=== PATIENT | male | born 2000 | race Caucasian/White ===

== ENCOUNTER 2020-08-03 01:47 | Emergency (ER) | payer SELFPAY ==
[2020-08-03 01:47] VITALS: BP 126/76; PULSE 90; RESP 16; TEMP 37.2; O2SAT 100; BMI 19.4
--- NOTE | 2020-08-03 02:02 | ED.RN ---
RN CALLED FOR EKG, NO OLD EKGS IN MUSE
--- NOTE | 2020-08-03 02:05 | EKG12_ITS ---
Test Reason : CP Blood Pressure : / mmHG Vent. Rate : 092 BPM Atrial Rate : 092 BPM P-R Int : 158 ms QRS Dur : 070 ms QT Int : 342 ms P-R-T Axes : 069 060 059 degrees QTc Int : 422 ms Normal sinus rhythm Right atrial enlargement Borderline ECG Confirmed by SIMON BASURTO, KEMAL ([id number]), film or videotape editor DUTCH BARNES ([id number]) on 08/04/2020 10:05:00 AM Referred By: BB Confirmed By:KEMAL MONTES MD
--- NOTE | 2020-08-03 02:11 | ED.VIS.CHEST ---
HPI History of Present Illness Chief Complaint: Chest Pain Informant: patient Onset/Context/Timing Onset: Weeks (3-4) Activity at onset: gradual Timing: Intermittent and - (as long as I think about it) Quality: Positive for Pressure Location: Right Chest (Without radiation) Current Severity: Mild Maximum Severity: Moderate Worsened By: Nothing; Not Worsened By Exertion, Movement of Arm, Movement of Torso, Eating, Breathing and Coughing Relieved By: Nothing Associated Symptoms: Positive for Nausea (w/ dry heaves tonight for first time) Narrative Patient states since the discomfort has been going on for 3 to 4 weeks and he was having some dry heaving tonight, he decided to get checked. He has not had this evaluated yet. Other than the dry heaves tonight, he has had no other associated symptoms such as dyspnea, leg pain or swelling, pleuritic discomfort, palpitations, lightheadedness, sweating that is unexplained. He states he vapes but does not smoke cigarettes or do any other drugs, he is not an IV drug user, he stopped vaping but the symptoms persisted intermittently. PE Risk Factors: Positive for Recent Travel/Surgery (traveling state to pending sale to [facility], [facility] for past 1-2 years; lives in [place]; recently to [facility].) PFSH PFSH Home Medications dicyclomine 20 mg PO Q6H PRN #20 capsule 08/03/20 [Rx Last Taken Unknown] omeprazole 40 mg PO DAILY #14 cap 08/03/20 [Rx Last Taken Unknown] Allergy/AdvReac Type Severity Reaction Status Date / Time No Known Allergies Allergy Verified 08/03/20 01:51 Social History Smoking Status: Current every day smoker ROS ROS ED Constitutional Constitutional ED: Denies chills or fever(s) Eyes Eyes: Denies change in vision or diplopia ENT ENT ED: Denies rhinorrhea or sore throat Cardiovascular Cardiovascular: Reports as per HPI and chest pain; Denies palpitations Respiratory/Chest Respiratory/Chest: Denies cough or dyspnea Gastrointestinal Gastrointestinal: Denies abdominal pain, diarrhea, nausea or vomiting Genitourinary Genitourinary ED: Denies dysuria or hematuria Musculoskeletal Musculoskeletal: Denies back pain or neck pain Integumentary Denies abscess or rash Neurologic Neurologic: Denies headache(s), paresthesias or weakness Psychiatric Psychiatric: Denies anxiety or suicidal thoughts EXAM Physical Exam Const Vital Signs: 08/03/20 01:47 08/03/20 01:52 08/03/20 02:09 Temperature 99 F Temperature Source Oral Pulse Rate 90 Respiratory Rate 16 Respiratory Effort Normal Non-Labored Blood Pressure 126/76 H Blood Pressure Mean 92 Pulse Ox 100 Oxygen Delivery Method Room Air Room Air 08/03/20 03:02 Temperature Temperature Source Pulse Rate 78 Respiratory Rate 20 H Respiratory Effort Blood Pressure 127/82 H Blood Pressure Mean 97 Pulse Ox 99 Oxygen Delivery Method Room Air Positive well nourished and well developed General Appearance ED: well developed and NAD HEENT Reports moist mucous membranes normocephalic and atraumatic Eyes PERRL and EOMs intact bilaterally Neck full ROM and supple Chest Wall inspection of chest normal and palpation of chest normal Chest: Negative for tenderness Resp normal respiratory effort and clear to auscultation bilaterally Cardio regular rate, regular rhythm and no murmurs Rate: Negative for tachycardic GI non-tender and non-distended Auscultation: normoactive bowel sounds Palpation: soft Back/Spine no CVA tenderness General Back: other FROM Extremity normal to inspection Extremity Narrative: no palpable cords General Extremety ED: Negative for calf tenderness, edema, pulses abnormal or tenderness General Extremity: Negative for calf tenderness, edema or pulses abnormal Neuro oriented x3, CN's II-XII intact bilaterally and no sensory deficits noted Sensorium / Orientation: awake and alert Motor Exam: strength 5/5 throughout Psych mental status grossly normal, thought process normal, cooperative and affect normal Skin no rashes or lesions noted and no wounds MDM MDM MDM Narrative Medical decision making narrative: PERC score is 0. He does not need further work-up in order to rule out pulmonary embolus, and this history/exam is inconsistent with PE. He was reassured with regards to that as well as cardiac etiologies given his normal work-up, his chest x-ray and exam are normal. I gave him a GI cocktail in consideration of the possibility of GI etiology, he states he cannot tell if it is the resting or the medication but he feels much better. At this time I recommend that he follow-up with his doctor once he gets home, but I will place him on a 2-week course of a PPI as well as as needed dicyclomine to see if that helps and he is comfortable with that plan. Lab Data Attestation: I reviewed the patient's lab results. Labs: Laboratory Results - last 24 hr 08/03/20 08/03/20 01:54 01:54 WBC 5.8 RBC 5.01 Hgb 15.8 Hct 46.1 MCV 92.0 MCH 31.5 MCHC 34.3 RDW Std Deviation 41.1 RDW Coeff of Clara 12.1 Plt Count 184 MPV 12.3 H Immature Gran % (Auto) 0.000 Neut % (Auto) 58.4 Lymph % (Auto) 30.2 [place] % (Auto) 9.1 Eos % (Auto) 1.6 Baso % (Auto) 0.7 Absolute Neuts (auto) 3.4 Absolute Lymphs (auto) 1.75 Nucleated RBC % 0 Sodium 137 Potassium 3.8 Chloride 105 Carbon Dioxide 25.0 Anion Gap 7 BUN 14 Creatinine 0.91 Estim Creat Clear Calc 112.64 Est GFR (MDRD) Af Amer 135 Est GFR (MDRD) Non-Af 112 BUN/Creatinine Ratio 15.4 Glucose 101 Calcium 9.5 Troponin I < 0.015 Radiography Chest X-Ray - ED: 1 View, Read by ED Physician and Normal Diagnostic Testing: Radiology Impression Chest X-Ray 08/03/20 02:13 IMPRESSION: No acute cardiopulmonary process. Electronically Signed: Dax Delgado MD at 2:38 EDT Tel , Service support , EKG Initial EKG: Attestation: I personally reviewed and interpreted this EKG as follows: Interpretation: Sinus Rhythm and No Acute Injury Pattern Comments: normal EKG. Pt w/ asthenic build. Prior EKG tracings: not available for review Discharge Plan Triage Chief Complaint: Chest Pain ED Provider: Juancho Klein Dx/Rx/DC Orders Clinical Impression: Chest pain, unspecified Instructions: ED Chest Pain, Noncardiac Prescriptions: New omeprazole 40 mg capsule,delayed release(DR/EC) 40 mg PO DAILY Qty: 14 RF: 0 dicyclomine 10 mg capsule 20 mg PO Q6H PRN (Reason: abdominal pain) Qty: 20 RF: 0 Primary Care Provider: Care Physician,No Primary Referrals: Care Physician,No Primary [Primary Care Provider] - Doctor,Your [STAFF PHYSICIAN] - (When able) Disposition Disposition: Home, self care
--- NOTE | 2020-08-03 02:13 | RAD_ITS ---
STUDY: X-RAY CHEST REASON FOR EXAM: Male, 19 years old. chest pain TECHNIQUE: 1 view COMPARISON: None. FINDINGS: Cardiomediastinal silhouette is unremarkable. Costophrenic angles are sharp. Lungs are clear. The trachea is midline. There is no pneumothorax. The bones are grossly intact. RAD/Chest 1 View (Portable) IMPRESSION: No acute cardiopulmonary process. Electronically Signed: Dax Delgado MD at 2:38 EDT Tel , Service support ,
[2020-08-03 02:14] LABS: Absolute Lymphocyte Count 1.75 X10^3/uL (0.83-4.51); Absolute Neutrophil Count 3.4 X10^3/uL (2.0-7.7); Basophil# 0.04 X10^3/uL; Basophil% 0.7 % (0-1); Eosinophil# 0.09 X10^3/uL; Eosinophils% 1.6 % (0-5); Hematocrit 46.1 % (40-54); Hemoglobin 15.8 g/dL (13.0-16.5); Lymphocyte # 1.75 X10^3/ul (0.83-4.51); Lymphocyte % 30.2 % (19-41); Mean Corp Hgb Conc 34.3 g/dL (32-36); Mean Corpuscular Hgb 31.5 pg (27.0-32.0); Mean Platelet Vol. 12.3 fl (6.2-12.0); Monocyte# 0.53 X10^3/uL; Monocyte% 9.1 % (0-10); NRBC Flagged by Analyzer 0 % (0-5); Neutrophil # 3.39 X10^3/uL (2.7-7.7); Neutrophil % 58.4 % (47-70); Platelet Count 184 K/mm3 (150-450); RBC Distribution Width CV 12.1 % (11.6-14.6); RBC Distribution Width SD 41.1 fl (35.1-43.9); Red Blood Count 5.01 M/mm3 (4.6-6.2); White Blood Count 5.8 K/mm3 (4.4-11.0)
[2020-08-03] MEDS: Mag Hydrox/Al Hydrox/Simeth 30 ML UDC PO (02:14)
[2020-08-03 02:27] LABS: Anion Gap 7 (5-15); BUN 14 mg/dL (7-18); BUN/Creat Ratio 15.4 RATIO (10-20); Calcium,Total 9.5 mg/dL (8.5-10.1); Chloride 105 mmol/L (98-107); Creatinine, Serum 0.91 mg/dL (0.70-1.30); EST Glomerular Filtration Rate 112 mL/min (>60); Est Glom Filt Rate - Afr Amer 135 mL/min (>60); Estimated Creatinine Clearance 112.64 ml/min; Glucose 101 mg/dL (74-106); Potassium 3.8 mmol/L (3.5-5.1); Sodium Level 137 mmol/L (136-145)
[2020-08-03 03:02] VITALS: BP 127/82; PULSE 78; RESP 20; O2SAT 99
[2020-08-03 03:23] VITALS: BP 133/77; PULSE 87; RESP 20; O2SAT 98
== END 2020-08-03 03:24 | disposition home or self-care (01) ==
PROVIDERS: Emergency Provider Emergency Medicine
DX: R07.9 Chest pain, unspecified (principal); R07.89 Other chest pain; R11.0 Nausea; Z79.899 Other long term (current) drug therapy; F17.290 Nicotine dependence, other tobacco product, uncomplicated
CPT/HCPCS: 71045; 80048; 84484; 85025; 93005; 99285; A4216